=== PATIENT | female | born 1975 | race Caucasian/White ===

== ENCOUNTER → 2017-12-10 | Outpatient (CLI) | payer OTHER | LOC: LAB 17:42 | DX: R35.0 Frequency of micturition (principal) | CPT/HCPCS: 87077; 87086; 87186 ==

== ENCOUNTER → 2018-01-20 | Outpatient (CLI) | payer OTHER ==
[2018-01-20 13:32] LABS: Influenza A Negative (NEGATIVE); Influenza B Negative (NEGATIVE)
== END | disposition home or self-care (01) ==
LOC: LAB 12:29
PROVIDERS: Family Medicine
DX: R50.9 Fever, unspecified (principal); R05 Cough
CPT/HCPCS: 87804

== ENCOUNTER 2020-04-01 07:03 | Day surgery (SDC) | payer OTHER ==
[~2020-04-01] VITALS: Ht 167.6 cm; Wt 81.5 kg
[~2020-04-01 07:03] MED LIST: Flovent 110 MCG12 GM INH; VITAMINS; Ventolin/Prove6.7 GM INH
--- NOTE | 2020-04-01 07:40 | NUR ---
History, Chart, Medications and Allergies reviewed before start of procedure. Patient confirms NPO status and agrees with scheduled surgery. URINE TO DILUTE ON URINE HCG, WILL DRAW SERUM HCG AND TAKE TO LAB.
--- NOTE | 2020-04-01 18:06 | NUR ---
SHIFT SUMMARY PT POD 0 LAVH. STERI STRIPS X'S 3 C/D/I. MONTE PATENT, DRAINING CLEAR YELLOW URINE. MEDICATED PER EMAR FOR N/V. EMESIS 300 ONCE. PLAN IS TO DC HOME TOMORROW
--- NOTE | 2020-04-02 03:35 | NUR ---
SHIFT SUMMARY POD 1 S/P LAVH. PT A/OX4 WITH VSS. ABD STERI STRIPS/INCISION SITE DRESSING X3 C/D/I. SCANT AMOUNT OF VAGINAL BLEEDING NOTED. MONTE CATH IN PLACE AND DRAINING CLEAR YELLOW URINE. PAIN MANAGED WITH TORADOL AND TYLENOL. MEDICATED FOR N/V WITH IV ZOFRAN AND REGLAN; DENIES CURRENT NAUSEA. REPORTS TOLERATING CRACKERS AND FULL LIQUIDS. ABLE TO AMBULATE IND IN HALLWAY AND ROOM. APPEARS TO BE CURRENTLY SLEEPING IN BED WITH CALL LIGHT IN REACH. WILL CONT TO MONITOR AND GIVE REPORT TO ONCOMING RN.
[2020-04-02 04:46] LABS: BASOPHILS ABSOLUTE AUTO 0.02 K/mm3 (0.00-0.23); BASOPHILS PERCENT AUTO 0 % (0-2); EOSINOPHILS PERCENT AUTO 0 % (0-6); Hematocrit 35.2 % (33.0-51.0); Hemoglobin 11.9 g/dL (11.5-16.0); IMMATURE GRAN ABSOLUTE AUTO 0.07 K/mm3 (0.00-0.10); IMMATURE GRAN PERCENT AUTO 1 % (0-1); LYMPHOCYTES ABSOLUTE AUTO 1.54 K/mm3 (0.84-5.20); LYMPHOCYTES PERCENT AUTO 11 % (21-46); MONOCYTES ABSOLUTE AUTO 1.19 K/mm3 (0.16-1.47); MONOCYTES PERCENT AUTO 8 % (4-13); Mean Corpuscular HGB 32.4 pg (26.0-34.0); Mean Corpuscular HGB Conc 33.8 g/dL (31.5-36.5); Mean Corpuscular Volume 96 fL (80-100); Mean Platelet Volume 10.1 fL (9.1-12.4); NEUTROPHILS ABSOLUTE AUTO 11.27 K/mm3 (1.96-9.15); NEUTROPHILS PERCENT AUTO 80 % (41-73); Platelet Count 255 K/mm3 (150-400); RDW Coefficient Variation 12.7 % (11.7-14.2); RDW Standard Deviation 45.3 fL (35.1-46.3); Red Blood Cell Count 3.67 M/mm3 (3.80-5.20); White Blood Cell Count 14.09 K/mm3 (4.00-11.30)
[2020-04-02] MEDS ORDERED: ACETAMINOPHEN500 MG PO (07:57)
[2020-04-02] MEDS ORDERED: DOCU100 PO (09:04)
[2020-04-02] MEDS ORDERED: NAPR500 PO (09:05)
[2020-04-02] MEDS ORDERED: ONDA4ODT MM (09:06)
--- NOTE | 2020-04-02 09:29 | NUR ---
DISCHARGE PT EDUCATED ON AND RECEIVED PRINTED DISCHARGE INSTRUCTIONS AND VERBALIZED AN UNDERSTANDING. ZOFRAN RX FAXED OVER TO [facility] PER PT REQUEST. IV DC'D. PT VOIDING SPONTANEOSLY. PT GATHERED ALL PERSONAL BELONGINGS AND WAITING FOR FOR TRANSPORT HOME.
== END 2020-04-02 10:13 | disposition home or self-care (01) ==
LOC: ORSCMMR 07:03 → ORD 08:30 → ORSCMMR 08:30 → ORD 10:30 → SURS 12:09 → ORSCMMR 04-02 10:13
PROVIDERS: Obstetrics & Gynecology
PROC: 0UT9FZZ Resection of Uterus, Via Natural or Artificial Opening With Percutaneous Endoscopic Assistance (ICD-10-PCS; principal; 2020-04-01 08:30)
PROC: 0UT7FZZ Resection of Bilateral Fallopian Tubes, Via Natural or Artificial Opening With Percutaneous Endoscopic Assistance (ICD-10-PCS; principal; 2020-04-01 08:30)
DX: N92.0 Excessive and frequent menstruation with regular cycle (principal); N94.6 Dysmenorrhea, unspecified; R87.810 Cervical high risk human papillomavirus (HPV) DNA test positive; J45.909 Unspecified asthma, uncomplicated
CPT/HCPCS: 36415; 84703; 85025; 88307; J0171; J0690; J1100; J1885; J2250; J2370; J2405; J2704; J2765; J3010; J7120